=== PATIENT | female | born 1960 | race African-American/Black ===

== ENCOUNTER 2018-10-14 20:09 | Inpatient (IN) | payer MEDICAID ==
[~2018-10-14] VITALS: Ht 152.4 cm; Wt 93.4 kg
[~2018-10-14 20:09] MED LIST: ALBU6.7H9 IH; ASPI-1159 PO; ATOR20TA PO; CLOP75TA33 PO; GABA600T PO; HYDR-4005 PO; INS7030 SQ; LOSA1TAB9 PO; MECL-109 PO; OMEP20CA10 PO; TIMO15DR12 EACHEYE; VIT1TABL62 PO; nitrostat SL
[2018-10-14] MEDS ORDERED: ONDANSETRON HCL 4MG/2ML INJ IV STA (23:13)
[2018-10-14] MEDS ORDERED: NITROGLYCERIN OINT 1GM/INCH UDPKT TD ONE (23:15)
[2018-10-14] MEDS ORDERED: MORPHINE SULFATE 10 MG/ML CPJ IV ONE (23:15)
[2018-10-15] VITALS (7 sets, daily range): BP systolic 110–129; BP diastolic 68–72
[2018-10-15 00:18] LABS: BASOPHILS % 0.4 % (0.0-2.0); EOSINOPHILS % 2.3 % (0.0-5.0); HEMOGLOBIN. 10.4 g/dL (12.0-16.0); LYMPHOCYTES % 21.2 % (20.0-50.0); MEAN CORPUSCULAR HEMOGLOBIN 26.8 pg (28.0-32.0); MEAN CORPUSCULAR VOLUME 85.2 fL (81.0-99.0); MEAN PLATELET VOLUME 7.3 fl (7.4-10.4); NEUTROPHILS % 71.1 % (40.0-76.0); PLATELET 324 x1000/uL (130-400); RED BLOOD CELL COUNT 3.87 mill/uL (4.2-5.4); RED CELL DISTRIBUTION WIDTH 18.8 % (11.6-14.6)
[2018-10-15 00:25] LABS: CHLORIDE 103 mEq/L (98-107)
[2018-10-15] MEDS ORDERED: CYCL10TA7 PO (06:28)
[2018-10-15] MEDS ORDERED: CLONIDINE 0.1MG TABLET PO PRN (09:30)
[2018-10-15] MEDS ORDERED: HYDROCODONE/APAP 7.5/325MG 1 TAB TABLET PO PRN (09:30)
[2018-10-15] MEDS ORDERED: ACETAMINOPHEN 325MG TABLET PO PRN (09:30)
[2018-10-15] MEDS ORDERED: ONDANSETRON HCL 4MG/2ML INJ IV PRN (09:30)
[2018-10-15] MEDS: GABAPENTIN 300MG CAPSULE PO SCH ×2 (10:41→18:01)
[2018-10-15] MEDS: ASPIRIN 81MG TABLET PO SCH (10:41)
[2018-10-15] MEDS: CLOPIDOGREL 75MG TABLET PO SCH (10:41)
[2018-10-15] MEDS: SODIUM CHLORIDE 0.9% 1,000 ML IV SCH (10:42)
[2018-10-15] MEDS ORDERED: REGADENOSON 0.4 MG/5 ML IV NR (13:00)
[2018-10-15 16:13] LABS: CREATINE KINASE 92 IU/L (26-192); CREATINE KINASE MB FRACTION 1.3 ng/mL (0.5-3.6)
[2018-10-15] MEDS: INS NPH/REG HM 70-30 100 UNITS/ML 10ML VIAL (HUMULIN 70-30) SUBCUT SCH (17:53)
[2018-10-15] MEDS ORDERED: ATORVASTATIN CALCIUM 20MG TABLET PO SCH (21:00)
[2018-10-16] VITALS: BP 135/69
[2018-10-16 01:11] LABS: CLARITY URINE CLEAR (CLEAR); COLOR URINE YELLOW (YELLOW); KETONES URINE NEGATIVE (NEGATIVE); LEUKOCYTE ESTERASE URINE 1+ (NEGATIVE); NITRITE URINE NEGATIVE (NEGATIVE); OCCULT BLOOD URINE NEGATIVE (NEGATIVE); PH URINE 5.5 (4.5-8.0); PROTEIN URINE NEGATIVE (NEGATIVE); SPECIFIC GRAVITY URINE 1.016 (1.005-1.030); UROBILINOGEN URINE 0.2 E.U./dL (0.2-1.0)
[2018-10-16] MEDS: SODIUM CHLORIDE 0.9% 1,000 ML IV SCH (01:27)
[2018-10-16 02:10] LABS: CREATINE KINASE 91 IU/L (26-192)
[2018-10-16 02:11] LABS: CREATINE KINASE MB FRACTION 1.1 ng/mL (0.5-3.6)
[2018-10-16 04:00] VITALS: BP 129/73
[2018-10-16 07:06] LABS: CHLORIDE 103 mEq/L (98-107)
[2018-10-16 07:25] LABS: BASOPHILS % 0.6 % (0.0-2.0); EOSINOPHILS % 3.6 % (0.0-5.0); HEMATOCRIT. 32.2 % (36.0-48.0); HEMOGLOBIN. 10.3 g/dL (12.0-16.0); LYMPHOCYTES % 21.5 % (20.0-50.0); MEAN CORPUSCULAR HEMOGLOBIN 27.1 pg (28.0-32.0); MEAN CORPUSCULAR VOLUME 84.9 fL (81.0-99.0); MEAN PLATELET VOLUME 7.5 fl (7.4-10.4); MONOCYTES % 4.7 % (2.0-8.0); NEUTROPHILS % 69.6 % (40.0-76.0); PLATELET 299 x1000/uL (130-400); RED CELL DISTRIBUTION WIDTH 18.6 % (11.6-14.6)
[2018-10-16 07:26] LABS: LDL CHOLESTEROL 90 mg/dL (5-100)
[2018-10-16 07:27] LABS: CREATINE KINASE 87 IU/L (26-192); CREATINE KINASE MB FRACTION 1.3 ng/mL (0.5-3.6); HDL CHOLESTEROL 54 mg/dL (40-59)
[2018-10-16 08:00] VITALS: BP 139/78
[2018-10-16] MEDS: INS NPH/REG HM 70-30 100 UNITS/ML 10ML VIAL (HUMULIN 70-30) SUBCUT SCH (08:43)
[2018-10-16] MEDS: ASPIRIN 81MG TABLET PO SCH (08:43)
[2018-10-16] MEDS: CLOPIDOGREL 75MG TABLET PO SCH (08:44)
[2018-10-16] MEDS: GABAPENTIN 300MG CAPSULE PO SCH (08:44)
[2018-10-16] MEDS ORDERED: REGADENOSON 0.4 MG/5 ML IV ONE (08:45)
[2018-10-16 12:00] VITALS: BP 156/82
[2018-10-16 15:02] VITALS: BP 146/80
== END 2018-10-16 16:00 | disposition home or self-care (01) | DRG 203 ==
LOC: ER 20:09 → 8WST 10-15 02:24 → EDBEDREQ 10-15 02:26 → ENRESERV 10-15 04:11
PROVIDERS: ADMIT Internal Medicine; ATTEND Internal Medicine
DX: M94.0 Chondrocostal junction syndrome [Tietze] (principal); E11.40 Type 2 diabetes mellitus with diabetic neuropathy, unspecified; I25.10 Atherosclerotic heart disease of native coronary artery without angina pectoris; E66.9 Obesity, unspecified; R42 Dizziness and giddiness; K21.9 Gastro-esophageal reflux disease without esophagitis; I10 Essential (primary) hypertension; H40.9 Unspecified glaucoma; E78.00 Pure hypercholesterolemia, unspecified; J45.909 Unspecified asthma, uncomplicated; M19.90 Unspecified osteoarthritis, unspecified site; Z79.899 Other long term (current) drug therapy; Z88.0 Allergy status to penicillin; Z98.891 History of uterine scar from previous surgery; I69.354 Hemiplegia and hemiparesis following cerebral infarction affecting left non-dominant side; Z79.02 Long term (current) use of antithrombotics/antiplatelets; I25.2 Old myocardial infarction; Z79.4 Long term (current) use of insulin; Z79.82 Long term (current) use of aspirin; Z95.5 Presence of coronary angioplasty implant and graft; Z79.84 Long term (current) use of oral hypoglycemic drugs; Z68.41 Body mass index [BMI] 40.0-44.9, adult
CPT/HCPCS: 36415; 71045; 78452; 80048; 80061; 82550; 82553; 82962; 83735; 83880; 84484; 93005; 93017; 96374; 96375; 99285; A9500; J1815; J2270; J2405; J2785; J7030

== ENCOUNTER 2020-06-20 08:40 | Inpatient (IN) | payer MEDICAID ==
[~2020-06-20] VITALS: Ht 149.9 cm; Wt 96.2 kg
[~2020-06-20 08:40] MED LIST changes: -ASPI-1159 PO; +ASPI-1497 PO; +CYCL10TA7 PO; -MECL-109 PO; +MECL-159 PO; -OMEP20CA10 PO; +OMEP20CA14 PO; +TAM75 MT
[2020-06-20] MEDS ORDERED: DILTIAZEM HCL 5MG/ML 5ML VIAL IV ONE (09:15)
[2020-06-20] MEDS ORDERED: SODIUM CHLORIDE 0.9% 500 ML IV ONE (09:15)
[2020-06-20 09:45] LABS: CHLORIDE 102 mEq/L (98-107)
[2020-06-20] MEDS ORDERED: DILTIAZEM HCL 120MG CAPSULE CD 24HR PO ONE (09:45)
[2020-06-20] MEDS ORDERED: ASPIRIN 81MG TABLET PO ONE ×2 (09:45→17:00)
[2020-06-20] MEDS ORDERED: DILTIAZEM HCL 60MG TABLET PO NR (09:45)
[2020-06-20 09:46] LABS: BASOPHILS % 0.3 % (0.0-2.0); EOSINOPHILS % 0.7 % (0.0-5.0); LYMPHOCYTES % 22.8 % (20.0-50.0); MEAN CORPUSCULAR HEMOGLOBIN 26.2 pg (28.0-32.0); MEAN CORPUSCULAR VOLUME 83.1 fL (81.0-99.0); MEAN PLATELET VOLUME 7.4 fl (7.4-10.4); MONOCYTES % 4.5 % (2.0-8.0); NEUTROPHILS % 71.7 % (40.0-76.0); PLATELET 359 x1000/uL (130-400); RED BLOOD CELL COUNT 2.62 mill/uL (4.2-5.4); RED CELL DISTRIBUTION WIDTH 20.8 % (11.6-14.6)
[2020-06-20 09:48] LABS: HEMOGLOBIN. 6.9 g/dL (12.0-16.0)
[2020-06-20 09:49] LABS: HEMATOCRIT. 21.8 % (36.0-48.0)
[2020-06-20 11:27] LABS: CLARITY URINE CLOUDY (CLEAR); COLOR URINE YELLOW (YELLOW); KETONES URINE NEGATIVE (NEGATIVE); LEUKOCYTE ESTERASE URINE 2+ (NEGATIVE); NITRITE URINE NEGATIVE (NEGATIVE); OCCULT BLOOD URINE NEGATIVE (NEGATIVE); PROTEIN URINE 1+ (NEGATIVE); SPECIFIC GRAVITY URINE 1.016 (1.005-1.030); UROBILINOGEN URINE 0.2 E.U./dL (0.2-1.0)
[2020-06-20] MEDS ORDERED: PANTOPRAZOLE SODIUM 40 MG/VIAL IV SCH (11:45)
[2020-06-20] MEDS ORDERED: ONDANSETRON HCL 4MG/2ML INJ IV PRN (14:45)
[2020-06-20] MEDS ORDERED: ACETAMINOPHEN 325MG TABLET PO PRN (14:45)
[2020-06-20] MEDS ORDERED: SODIUM CHLORIDE 0.9% 1,000 ML IV SCH (14:45)
[2020-06-20] MEDS ORDERED: LEVOFLOXACIN 500MG PREMIX 100 ML IV NR (15:30)
[2020-06-20] MEDS ORDERED: SORBITOL 70% SOLN 30ML PO NR ×2 (16:15→22:30)
[2020-06-20] MEDS: DILTIAZEM HCL 60MG TABLET PO SCH ×2 (16:25→21:00)
[2020-06-20 20:00] VITALS: BP_SYST 90; BP_SYST 92; BP_DIAS 47; BP_DIAS 54
[2020-06-20] MEDS ORDERED: INFLUENZA VACCINE 05/PF 0.5 ML VIAL IM ONE (20:15)
[2020-06-20] MEDS ORDERED: PNEUMOCOCCAL 23-VAL P-SAC VAC 0.5 ML IM ONE (20:15)
[2020-06-20 21:21] VITALS: BP 106/57
[2020-06-20] MEDS ORDERED: DEXT 5%/0.45% NACL KCL 20MEQ/L 1,000 ML IV ONE (21:30)
[2020-06-20] MEDS: PANTOPRAZOLE SODIUM 40 MG/VIAL IV SCH (21:31)
[2020-06-20] MEDS: MORPHINE SULFATE 2 MG/ML CPJ (NOT FOR IM USE) IV PRN (21:33)
[2020-06-20 21:37] VITALS: BP 106/56
[2020-06-20 22:00] VITALS: BP 107/58
[2020-06-20 22:37] VITALS: BP 108/60
[2020-06-20 23:37] VITALS: BP 102/53
[2020-06-21] VITALS (12 sets, daily range): BP systolic 99–141; BP diastolic 55–73
[2020-06-21 01:38] LABS: HEMATOCRIT 23.6 % (36.0-48.0); HEMOGLOBIN 7.7 g/dL (12.0-16.0)
[2020-06-21] MEDS: DILTIAZEM HCL 60MG TABLET PO SCH ×4 (03:00→20:54)
[2020-06-21 07:02] LABS: INR 1.1; PARTIAL THROMBOPLASTIN TIME 24.8 sec (23.4-31.0); PROTHROMBIN TIME 11.2 sec (9.6-11.0)
[2020-06-21 07:30] LABS: BASOPHILS % 0.3 % (0.0-2.0); EOSINOPHILS % 0.5 % (0.0-5.0); HEMATOCRIT. 24.6 % (36.0-48.0); LYMPHOCYTES % 14.5 % (20.0-50.0); MEAN CORPUSCULAR VOLUME 84.8 fL (81.0-99.0); MEAN PLATELET VOLUME 7.4 fl (7.4-10.4); MONOCYTES % 4.3 % (2.0-8.0); NEUTROPHILS % 80.4 % (40.0-76.0); PLATELET 269 x1000/uL (130-400); RED CELL DISTRIBUTION WIDTH 18.7 % (11.6-14.6)
[2020-06-21 07:38] LABS: HEMOGLOBIN. 8.1 g/dL (12.0-16.0)
[2020-06-21] MEDS: PANTOPRAZOLE SODIUM 40 MG/VIAL IV SCH ×2 (08:55→20:54)
[2020-06-21] MEDS ORDERED: KCL 20MEQ/100ML PREMIX 100 ML IV ONE (10:00)
[2020-06-21] MEDS: SODIUM BICARBONATE 50 MEQ in SODIUM CHLORIDE 0.45% 1,000 ML IV SCH ×2 (10:15→21:04)
[2020-06-21 10:17] LABS: CREATINE KINASE 191 IU/L (26-192)
[2020-06-21] MEDS ORDERED: MORPHINE SULFATE 2 MG/ML CPJ (NOT FOR IM USE) IV SCH (12:00)
[2020-06-21] MEDS ORDERED: PROPOFOL 200MG/20ML VIAL IV ONE (15:25)
[2020-06-21] MEDS ORDERED: MIDAZOLAM HCL 5 MG/5 ML VIAL ONE (15:25)
[2020-06-21] MEDS ORDERED: FENTANYL CITRATE/PF 50MCG/ML 2ML VIAL ONE (15:25)
[2020-06-21] MEDS ORDERED: PHENYLEPHRINE HCL 10 MG/ML 1ML (IV VIAL) IV ONE (15:26)
[2020-06-21] MEDS ORDERED: LIDOCAINE HCL/PF 1% 10 MG/ML 5ML VIAL ONE (15:26)
[2020-06-21] MEDS ORDERED: EPHEDRINE SULFATE 50MG/ML VIAL ONE (15:26)
[2020-06-21 20:26] LABS: HEMATOCRIT 25.7 % (36.0-48.0); HEMOGLOBIN 8.5 g/dL (12.0-16.0)
[2020-06-22] VITALS (12 sets, daily range): BP systolic 116–152; BP diastolic 52–81
[2020-06-22] MEDS: MORPHINE SULFATE 2 MG/ML CPJ (NOT FOR IM USE) IV PRN ×2 (01:49→23:01)
[2020-06-22] MEDS: DILTIAZEM HCL 60MG TABLET PO SCH ×4 (03:21→21:40)
[2020-06-22 07:34] LABS: BASOPHILS % 0.4 % (0.0-2.0); EOSINOPHILS % 2.5 % (0.0-5.0); HEMATOCRIT. 24.3 % (36.0-48.0); LYMPHOCYTES % 17.4 % (20.0-50.0); MEAN CORPUSCULAR HEMOGLOBIN 28.1 pg (28.0-32.0); MEAN CORPUSCULAR VOLUME 84.9 fL (81.0-99.0); MEAN PLATELET VOLUME 7.2 fl (7.4-10.4); MONOCYTES % 5.7 % (2.0-8.0); PLATELET 262 x1000/uL (130-400); RED BLOOD CELL COUNT 2.87 mill/uL (4.2-5.4); RED CELL DISTRIBUTION WIDTH 18.5 % (11.6-14.6)
[2020-06-22] MEDS: PANTOPRAZOLE SODIUM 40 MG/VIAL IV SCH ×2 (09:40→21:39)
[2020-06-22] MEDS: SODIUM BICARBONATE 50 MEQ in SODIUM CHLORIDE 0.45% 1,000 ML IV SCH ×2 (10:46→20:00)
[2020-06-22 12:06] LABS: TOTAL IRON BINDING CAPACITY 388 ug/dL (250-450)
[2020-06-22] MEDS: SUCRALFATE 1G TABLET PO SCH ×3 (12:41→21:39)
[2020-06-22] MEDS: LEVOFLOXACIN 250MG PREMIX 50 ML IV SCH (12:41)
[2020-06-22] MEDS: NITROGLYCERIN OINT 1GM/INCH UDPKT TD SCH ×3 (12:41→23:06)
[2020-06-22] MEDS: IRON SUCROSE COMPLEX 100 MG/5 ML ML IV SCH (17:00)
[2020-06-22] MEDS ORDERED: LEVOFLOXACIN 250MG PREMIX 50 ML IV SCH (18:00)
[2020-06-23] VITALS (16 sets, daily range): BP systolic 105–162; BP diastolic 54–101
[2020-06-23] MEDS: DILTIAZEM HCL 60MG TABLET PO SCH ×4 (02:47→21:29)
[2020-06-23] MEDS: MORPHINE SULFATE 2 MG/ML CPJ (NOT FOR IM USE) IV PRN ×2 (04:50→08:53)
[2020-06-23] MEDS: SODIUM BICARBONATE 50 MEQ in SODIUM CHLORIDE 0.45% 1,000 ML IV SCH (06:03)
[2020-06-23] MEDS: SUCRALFATE 1G TABLET PO SCH ×4 (06:07→21:29)
[2020-06-23] MEDS: NITROGLYCERIN OINT 1GM/INCH UDPKT TD SCH ×3 (06:07→17:10)
[2020-06-23 06:16] LABS: BASOPHILS % 0.3 % (0.0-2.0); EOSINOPHILS % 0.9 % (0.0-5.0); HEMOGLOBIN. 7.7 g/dL (12.0-16.0); LYMPHOCYTES % 11.4 % (20.0-50.0); MEAN CORPUSCULAR HEMOGLOBIN 28.5 pg (28.0-32.0); MEAN CORPUSCULAR VOLUME 85.3 fL (81.0-99.0); MEAN PLATELET VOLUME 6.9 fl (7.4-10.4); MONOCYTES % 5.8 % (2.0-8.0); NEUTROPHILS % 81.6 % (40.0-76.0); PLATELET 265 x1000/uL (130-400); RED BLOOD CELL COUNT 2.69 mill/uL (4.2-5.4); RED CELL DISTRIBUTION WIDTH 19.1 % (11.6-14.6)
[2020-06-23] MEDS ORDERED: SODIUM CHLORIDE 0.45% 1,000 ML IV SCH (07:00)
[2020-06-23] MEDS: PANTOPRAZOLE SODIUM 40 MG/VIAL IV SCH ×2 (08:52→21:29)
[2020-06-23] MEDS ORDERED: POTASSIUM CHLORIDE 20MEQ TABLET SR PO NR (09:00)
[2020-06-23] MEDS: LEVOFLOXACIN 250MG PREMIX 50 ML IV SCH (11:11)
[2020-06-23] MEDS ORDERED: HYDROCODONE/ACETAMINOPHEN 5/325MG TABLET PO PRN (11:15)
[2020-06-23] MEDS ORDERED: HEPARIN SODIUM 1,000 UNIT/1ML VIAL IV ONE (12:00)
[2020-06-23] MEDS ORDERED: FENTANYL CITRATE/PF 50MCG/ML 2ML VIAL ONE ×2 (12:19→12:58)
[2020-06-23] MEDS ORDERED: IODIXANOL 320MG/ML 100 ML BOTTLE IV ONE (12:19)
[2020-06-23] MEDS ORDERED: LIDOCAINE HCL 1% 20ML VIAL (Pyxis) INJ ONE (12:19)
[2020-06-23] MEDS ORDERED: MIDAZOLAM HCL 2 MG/2 ML VIAL ONE ×2 (12:19→12:58)
[2020-06-23] MEDS ORDERED: ATROPINE SULFATE 1MG/10ML SYR IV PRN (13:15)
[2020-06-23] MEDS ORDERED: MORPHINE SULFATE 2 MG/ML CPJ (NOT FOR IM USE) IV PRN (13:15)
[2020-06-23] MEDS ORDERED: ACETAMINOPHEN 325MG TABLET PO PRN (13:15)
[2020-06-23] MEDS ORDERED: ONDANSETRON HCL 4MG/2ML INJ IV PRN (13:15)
[2020-06-23] MEDS ORDERED: SODIUM CHLORIDE 0.45% 1,000 ML IV ONE (13:45)
[2020-06-23] MEDS: HYDROCODONE/ACETAMINOPHEN 10/325MG TABLET PO PRN (14:17)
[2020-06-23] MEDS: IRON SUCROSE COMPLEX 100 MG/5 ML ML IV SCH (16:36)
[2020-06-24] VITALS (17 sets, daily range): BP systolic 121–153; BP diastolic 52–88
[2020-06-24] MEDS: DILTIAZEM HCL 60MG TABLET PO SCH ×2 (03:00→08:14)
[2020-06-24] MEDS: HYDROCODONE/ACETAMINOPHEN 10/325MG TABLET PO PRN ×2 (05:11→23:45)
[2020-06-24] MEDS: NITROGLYCERIN OINT 1GM/INCH UDPKT TD SCH ×3 (05:46→11:39)
[2020-06-24] MEDS: SUCRALFATE 1G TABLET PO SCH ×4 (06:25→20:33)
[2020-06-24 07:16] LABS: BASOPHILS % 0.6 % (0.0-2.0); EOSINOPHILS % 1.7 % (0.0-5.0); HEMATOCRIT. 22.3 % (36.0-48.0); HEMOGLOBIN. 7.5 g/dL (12.0-16.0); LYMPHOCYTES % 13.1 % (20.0-50.0); MEAN CORPUSCULAR HEMOGLOBIN 28.7 pg (28.0-32.0); MEAN CORPUSCULAR VOLUME 85.8 fL (81.0-99.0); MEAN PLATELET VOLUME 6.9 fl (7.4-10.4); MONOCYTES % 5.9 % (2.0-8.0); NEUTROPHILS % 78.7 % (40.0-76.0); PLATELET 253 x1000/uL (130-400); RED CELL DISTRIBUTION WIDTH 19.3 % (11.6-14.6)
[2020-06-24] MEDS: ASPIRIN 81MG TABLET PO SCH (08:14)
[2020-06-24] MEDS: PANTOPRAZOLE SODIUM 40 MG/VIAL IV SCH ×2 (08:14→20:33)
[2020-06-24] MEDS: LEVOFLOXACIN 250MG PREMIX 50 ML IV SCH (10:27)
[2020-06-24] MEDS ORDERED: SORBITOL 70% SOLN 30ML PO NR (11:30)
[2020-06-24] MEDS ORDERED: BISACODYL 10MG SUPP PR NR (11:30)
[2020-06-24] MEDS: ISOSORBIDE MONONITRATE 30MG TABLET SR 24HR PO SCH (12:06)
[2020-06-24] MEDS: AMIODARONE HCL 200 MG TABLET PO SCH (12:07)
[2020-06-24] MEDS: IRON SUCROSE COMPLEX 100 MG/5 ML ML IV SCH (16:20)
[2020-06-24] MEDS: DILTIAZEM HCL 120MG CAPSULE CD 24HR PO SCH (20:33)
[2020-06-25] VITALS (9 sets, daily range): BP systolic 120–155; BP diastolic 55–83
[2020-06-25] MEDS: SUCRALFATE 1G TABLET PO SCH ×2 (06:26→11:01)
[2020-06-25 06:37] LABS: BASOPHILS % 0.4 % (0.0-2.0); EOSINOPHILS % 2.6 % (0.0-5.0); HEMATOCRIT. 27.4 % (36.0-48.0); HEMOGLOBIN. 9.1 g/dL (12.0-16.0); LYMPHOCYTES % 14.6 % (20.0-50.0); MEAN CORPUSCULAR HEMOGLOBIN 28.7 pg (28.0-32.0); MEAN CORPUSCULAR VOLUME 85.9 fL (81.0-99.0); MEAN PLATELET VOLUME 6.6 fl (7.4-10.4); MONOCYTES % 5.4 % (2.0-8.0); PLATELET 267 x1000/uL (130-400); RED BLOOD CELL COUNT 3.19 mill/uL (4.2-5.4)
[2020-06-25] MEDS: PANTOPRAZOLE SODIUM 40 MG/VIAL IV SCH (08:41)
[2020-06-25] MEDS: ISOSORBIDE MONONITRATE 30MG TABLET SR 24HR PO SCH (08:41)
[2020-06-25] MEDS: ASPIRIN 81MG TABLET PO SCH (08:41)
[2020-06-25] MEDS: AMIODARONE HCL 200 MG TABLET PO SCH (08:42)
[2020-06-25] MEDS: DILTIAZEM HCL 120MG CAPSULE CD 24HR PO SCH (08:42)
[2020-06-25] MEDS: HYDROCODONE/ACETAMINOPHEN 10/325MG TABLET PO PRN (11:06)
[2020-06-25] MEDS: LEVOFLOXACIN 250MG PREMIX 50 ML IV SCH (12:46)
== END 2020-06-25 14:45 | disposition home or self-care (01) | DRG 720 ==
LOC: ER 08:40 → EDBEDREQ 09:28 → 3WST 12:52 → EDBEDREQ 17:18 → EDBEDREQTM 17:18 → ENRESERV 17:41
PROVIDERS: ADMIT Internal Medicine; ATTEND Internal Medicine
PROC: 30233N1 Transfusion of Nonautologous Red Blood Cells into Peripheral Vein, Percutaneous Approach (ICD-10-PCS; 2020-06-20)
PROC: 0DB68ZX Excision of Stomach, Via Natural or Artificial Opening Endoscopic, Diagnostic (ICD-10-PCS; principal; 2020-06-21)
PROC: 0DJD8ZZ Inspection of Lower Intestinal Tract, Via Natural or Artificial Opening Endoscopic (ICD-10-PCS; 2020-06-21)
PROC: B2111ZZ Fluoroscopy of Multiple Coronary Arteries using Low Osmolar Contrast (ICD-10-PCS; 2020-06-23)
PROC: 3E033GC Introduction of Other Therapeutic Substance into Peripheral Vein, Percutaneous Approach (ICD-10-PCS; 2020-06-23)
DX: A41.9 Sepsis, unspecified organism (principal); I21.4 Non-ST elevation (NSTEMI) myocardial infarction; N17.9 Acute kidney failure, unspecified; D64.9 Anemia, unspecified; E11.9 Type 2 diabetes mellitus without complications; I25.10 Atherosclerotic heart disease of native coronary artery without angina pectoris; E66.9 Obesity, unspecified; I48.0 Paroxysmal atrial fibrillation; M19.90 Unspecified osteoarthritis, unspecified site; J45.909 Unspecified asthma, uncomplicated; E11.40 Type 2 diabetes mellitus with diabetic neuropathy, unspecified; E11.319 Type 2 diabetes mellitus with unspecified diabetic retinopathy without macular edema; E66.01 Morbid (severe) obesity due to excess calories; D72.829 Elevated white blood cell count, unspecified; K59.00 Constipation, unspecified; N39.0 Urinary tract infection, site not specified; K64.8 Other hemorrhoids; I12.9 Hypertensive chronic kidney disease with stage 1 through stage 4 chronic kidney disease, or unspecified chronic kidney disease; E11.22 Type 2 diabetes mellitus with diabetic chronic kidney disease; N18.9 Chronic kidney disease, unspecified; Z20.828 Contact with and (suspected) exposure to other viral communicable diseases; K25.4 Chronic or unspecified gastric ulcer with hemorrhage; K29.71 Gastritis, unspecified, with bleeding; K21.9 Gastro-esophageal reflux disease without esophagitis; Z79.01 Long term (current) use of anticoagulants; Z68.41 Body mass index [BMI] 40.0-44.9, adult; Z88.0 Allergy status to penicillin; Z79.891 Long term (current) use of opiate analgesic; Z79.899 Other long term (current) drug therapy; Z79.4 Long term (current) use of insulin; Z98.891 History of uterine scar from previous surgery; Z82.49 Family history of ischemic heart disease and other diseases of the circulatory system
CPT/HCPCS: 36415; 71045; 76770; 80048; 80053; 81003; 82270; 82550; 82728; 82962; 83540; 83550; 83735; 83880; 84484; 85014; 85018; 85025; 86850; 86900; 86920; 87426; 88305; 88313; 90686; 90732; 93005; 93306; 93454; 96374; 97162; 99291; C1769; C1887; C1893; C9113; J1644; J1956; J2250; J2270; J2370; J2704; J3010; J3480; J3490; J7030; P9016; Q9967

== ENCOUNTER 2022-03-12 15:33 | Emergency (ER) | payer OTHER ==
[~2022-03-12] VITALS: Ht 172.7 cm; Wt 91.0 kg
[~2022-03-12 15:33] MED LIST changes: -ATOR20TA PO; -CLOP75TA33 PO; -CYCL10TA7 PO; -GABA600T PO; +GABA800T97 PO; -HYDR-4005 PO; +HYDR-4009 PO; +LIP40 PO; -MECL-159 PO; +NITR0.4T49 SL; -OMEP20CA14 PO; +OMEP20TA23 PO; -nitrostat SL
[2022-03-12 15:39] VITALS: BP 143/72
== END 2022-03-12 20:25 | disposition left against medical advice (07) ==
LOC: ER 15:33
DX: F79 Unspecified intellectual disabilities (principal); E11.9 Type 2 diabetes mellitus without complications; J45.909 Unspecified asthma, uncomplicated; I25.2 Old myocardial infarction; I10 Essential (primary) hypertension; Z88.0 Allergy status to penicillin; Z79.899 Other long term (current) drug therapy; Z98.890 Other specified postprocedural states; Z86.73 Personal history of transient ischemic attack (TIA), and cerebral infarction without residual deficits
CPT/HCPCS: 99283